=== PATIENT | male | born 2000 | race Caucasian/White ===

== ENCOUNTER 2020-04-01 10:45 | Outpatient (CLI) | payer MEDICAID, SELFPAY ==
[2020-04-01 11:59] LABS: Abs Immature Grans 0.01 10^3/uL (0.0-0.06); Absolute Basophil Count 0.02 10^3/uL (0.0-0.2); Absolute Eosinophil Count 0.01 10^3/uL (0.0-0.7); Absolute Lymphocyte Count 1.86 10^3/uL (1.2-3.4); Absolute Monocyte Count 0.56 10^3/uL (0.1-0.8); Absolute Neutrophil Count 5.06 10^3/uL (1.2-6.7); Basophils % 0.3; Eosinophils % 0.1; HCT 53.3 % (40.0-50.0); HGB 18.3 g/dL (13.5-17.5); Immature Grans % 0.1; Lymphocytes % 24.7; MCH 30.9 pg (27.0-33.0); MCHC 34.3 % (32.0-36.0); MCV 89.9 fL (80-95); MPV 9.5 fL (8.0-11.0); Monocytes % 7.4; Neutrophils % 67.4; Nucleated RBC 0 %; Platelet Count 283 10^3/uL (130-400); RBC 5.93 10^6/uL (4.36-5.78); RDW 12.2 % (11.8-14.1); RDW-SD 40.6 fL; WBC 7.52 10^3/uL (4.4-10.8)
[2020-04-01 12:22] LABS: ALT 18 U/L (16-63); AST 11 U/L (15-37); Albumin 5.2 g/dL (3.4-5.0); Alkaline Phosphatase 69 U/L (46-116); Anion Gap 9.9 mmol/L (3-11); BUN 14 mg/dL (7-18); Bilirubin, Total 0.5 mg/dL (0.2-1.0); CO2 27.1 mmol/L (21.0-32.0); CREATININE 1.16 mg/dL (0.70-1.30); Calcium 9.9 mg/dL (8.5-10.1); Chloride 103 mmol/L (98-107); Glucose 106 mg/dL (74-106); Potassium 3.9 mmol/L (3.5-5.1); Sodium 140 mmol/L (136-145); Total Protein 8.8 g/dL (6.4-8.2)
[2020-04-01 19:22] LABS: Bilirubin Negative (Negative); Blood Negative (Negative); Clarity Clear (Clear); Glucose Negative (Negative); Ketones 15 mg/dL (Negative); Leukocyte Esterase Negative (Negative); Nitrite Negative (Negative); Specific Gravity >= 1.030 (1.005-1.025); Urobilinogen 0.2 EU/dL (Up TO 0.2)
[2020-04-05 15:17] LABS: IgA 327 mg/dL (85-499); Interpretation (See Note); Tissue Transglutaminase IgA <1.2 U/mL (<4.0)
== END 2020-04-01 11:05 ==
PROVIDERS: PCP Pediatrics; Visit Provider Naturopath
DX: R19.7 Diarrhea, unspecified (principal); R10.30 Lower abdominal pain, unspecified
CPT/HCPCS: 36415; 80053; 82784; 83516; 81003; 85025

== ENCOUNTER 2020-04-02 13:51 | Outpatient (REF) | payer MEDICAID, SELFPAY ==
[2020-04-03 11:31] LABS: Campylobacter PCR Negative (Negative); Salmonella PCR Negative (Negative); Shiga Toxin PCR Negative (Negative); Shigella/Enteroinvasive Ecoli Negative (Negative)
== END 2020-04-02 14:11 ==
LOC: LBN 13:51
PROVIDERS: PCP Pediatrics; Visit Provider Naturopath
DX: R19.7 Diarrhea, unspecified (principal); R10.30 Lower abdominal pain, unspecified
CPT/HCPCS: 87505; 83630; 87324

== ENCOUNTER 2021-07-22 15:24 | Outpatient (REF) | payer MEDICAID, SELFPAY ==
[2021-07-23 18:26] LABS: COVID-19 RT-PCR UVMMC Result Indeterminate (Negative)
== END 2021-07-22 15:25 | disposition home or self-care (01) ==
LOC: LBN 15:24
PROVIDERS: Visit Provider Family Medicine
DX: Z20.822 Contact with and (suspected) exposure to COVID-19 (principal); J06.9 Acute upper respiratory infection, unspecified
CPT/HCPCS: U0003

== ENCOUNTER 2022-08-08 18:22 | Emergency (ER) | payer MEDICAID, SELFPAY ==
[2022-08-08 18:25] VITALS: BP 105/72; PULSE 83; RESP 16; TEMP 37.4; O2SAT 100
--- NOTE | 2022-08-08 18:47 | ED.GENADUL_ITS ---
Discharge Plan Disposition Patient Disposition: Home Condition: Improving Discharge Details Clinical Impression: Abscess of face Primary Care Provider: Carlita,Local ED Provider: Jeff Norman Home Meds and New Rx's Prescriptions: New cephalexin 500 mg capsule 500 mg PO QID 10 Days Qty: 40 0RF sulfamethoxazole-trimethoprim [Bactrim DS] 800-160 mg tablet 1 tab PO BID Qty: 20 0RF Discharge Instructions Instructions: Hypokalemia (ED), Abscess Incision and Drainage (DC) Additional Instructions: Keflex and Bactrim as directed. Warm moist compresses every 2 hours for 20 minutes. [id number] Tylenol and/or Motrin as directed for discomfort. Please watch for new or worsening symptoms and return to the ER for any concerns. I have placed you on the care management list of expedite outpatient primary care follow-up. This follow-up likely cannot happen in the next 2 days and therefore I would like you to return to the ER in 48 hours for a wound recheck, as above return sooner for worsening symptoms. We did discuss your low potassium, be sure to have foods high in potassium. This too needs to be rechecked to be sure it is normalizing. Discharge Data Discharge Date/Time-TO BE ENTERED AT DEPARTURE: 08/08/22 21:21 Medical Decision Making <TATI Espinoza - Last Filed: 08/08/22 21:03> 21-year-old gentleman, denies significant past medical history, smokes marijuana, presents for a right sided facial abscess worsening over 1 week. Had leftover amoxicillin from a previous infection and taking that over the past couple of days, a total of 7 doses. He was seen at the walk-in clinic and sent to the ER for further evaluation. He appears nontoxic. Speaks in full sentences, manages his airway without difficulty. No difficulty speaking or breathing. Given the size and location of the abscess, I did ask Dr. Hunt to evaluate the patient. He did personally evaluate the patient, please see his note, bedside ultrasound performed as well as I&D by him. Plan to obtain IV access, give IV Rocephin, routine screening laboratory values. White blood cell count of 17.95. Potassium 2.7. Will replenish both with IV and p.o. potassium and obtain an EKG. I&D performed by Dr. Hunt, please see his note. Patient tolerated well. Patient given 1 tablet of Bactrim DS and 1 tablet of Percocet. We will provide a prescription for both Bactrim and Keflex and a take-home pack of Percocet. I have placed him on the care management list to help expedite outpatient follow- up for both his facial abscess and hypokalemia. His range of motion in his jaw is much improved. Airway is patent. He manages his secretions without difficulty. We did discuss the importance of increasing his overall potassium intake with things such as electrolyte drinks, bananas, etc. I will have him return to the ER in 48 hours for recheck as he does not have a PCP Standard discharge and return precautions were provided. Patient understands, is agreeable to this plan, and has no additional questions or concerns upon discharge. This documentation was generated using [employer] system, please disregard any oddities of phrase or misspellings. Medical Records Medical records reviewed: Yes I reviewed the patient's medical records. Lab Data Lab results reviewed: Yes I reviewed the patient's lab results. Labs: Laboratory Tests Range/Units 08/08/22 08/08/22 18:55 18:55 WBC (4.4-10.8) 10^3/uL 17.95 H RBC (4.36-5.78) 10^6/uL 5.20 Hgb (13.5-17.5) g/dL 15.5 Hct (40.0-50.0) % 45.2 MCV (80-95) fL 87 MCH (27.0-33.0) pg 29.8 MCHC (32.0-36.0) % 34.3 RDW (11.8-14.1) % 13.2 Plt Count (130-400) 10^3/uL 475 H MPV (8.0-11.0) fL 9.2 Immature Gran % 0.6 Neutrophils % 81.0 Lymphocytes % 9.8 Monocytes % 7.5 Eosinophils % 0.8 Basophils % 0.3 Nucleated RBC % (0.0-0.3) % 0.0 Absolute Neutrophils (1.2-6.7) 10^3/uL 14.54 H Absolute Lymphocytes (1.2-3.4) 10^3/uL 1.76 Absolute Monocytes (0.1-0.8) 10^3/uL 1.35 H Absolute Eosinophils (0.0-0.7) 10^3/uL 0.14 Absolute Basophils (0.0-0.2) 10^3/uL 0.05 Sodium (136-145) mmol/L 138 Potassium (3.5-5.1) mmol/L 2.7 L* Chloride (98-107) mmol/L 99 Carbon Dioxide (21.0-32.0) mmol/L 30.2 Anion Gap (3-11) mmol/L 8.8 BUN (7-18) mg/dL 12 Creatinine (0.70-1.30) mg/dL 1.2 Est GFR (CKD-EPI 2020) (mL/min/1.73m2) 88.24 Glucose (74-106) mg/dL 105 Calcium (8.5-10.1) mg/dL 9.6 Total Bilirubin (0.2-1.0) mg/dL 0.4 AST (15-37) U/L 17 ALT (16-63) U/L 21 Alkaline Phosphatase (46-116) U/L 98 Total Protein (6.4-8.2) g/dL 8.8 H Albumin (3.4-5.0) g/dL 3.5 ECG Data Attestation: I personally reviewed and interpreted this ECG (s) as follows: Interpretation: Sinus rhythm, ventricular of 73. ST elevation, probable early repolarization pattern. No evidence of changes consistent with hypokalemia. <Butch Hunt MD - Last Filed: 08/12/22 18:40> Date: 08/08/22 Time: 18:53 Note: Patient seen, examined, and discussed with TATI Norman. I agree with treatment plan as discussed/documented. HPI <TATI Espinoza - Last Filed: 08/08/22 21:03> General Mode of arrival: ambulatory . Date/Time Provider Initiated Documentation: 08/08/22 18:31 . Limitations to Documentation: no limitations . Information obtained by: patient . History of Present Illness 21 year old M presents to the emergency department with the chief complaint of Facial abscess, described as severe, with intensity rated at 8. Quality is described as aching, and is localized to the face. Patient reports no radiation. Patient started experiencing this week(s) (1) and it has been other (Worsening). No relieving factors improve symptom(s), No exacerbating factors reported . Patient notes no other symptoms.. Patient did receive the following treatments prior to arrival, other (Has been taking amoxicillin not prescribed to him) Related Data Home Medications Medication Instructions Recorded Confirmed cephalexin 500 mg capsule 500 mg PO QID 10 days #40 caps 08/08/22 sulfamethoxazole 800 1 tab PO BID #20 tabs 08/08/22 mg-trimethoprim 160 mg tablet (Bactrim DS) Previous Rx's Medication Instructions Recorded cephalexin 500 mg capsule 500 mg PO QID 10 days #40 caps 08/08/22 sulfamethoxazole 800 1 tab PO BID #20 tabs 08/08/22 mg-trimethoprim 160 mg tablet (Bactrim DS) Allergies Allergy/AdvReac Type Severity Reaction Status Date / Time No Known Allergies Allergy Unverified 08/08/22 18:28 General Stated Complaint: Cellulitis SHAVONNE: 3 Review of Systems <TATI Espinoza - Last Filed: 08/08/22 21:03> Constitutional Constitutional: Denies fever(s) and Denies weakness ENT Ears, Nose, Mouth, and Throat: Reports facial pain, Denies mouth pain, Denies neck pain and Denies sore throat Cardiovascular Cardiovascular: Denies chest pain and Denies dyspnea Respiratory Respiratory: Denies dyspnea Musculoskeletal Musculoskeletal: Denies neck pain, Denies numbness and Denies tingling Integumentary/Breasts Skin/Breast: Reports erythema Neurologic Neurologic: Denies numbness, Denies tingling and Denies weakness [facility] <TATI Espinoza - Last Filed: 08/08/22 21:03> All Active Problems (Updated 08/08/22 @ 20:59 by TATI Espinoza) Abscess of face (Acute) Medical History Hernia REPAIRED Surgical History Repair of inguinal hernia Family History Mother Healthy adult on routine physical examination Mental disorder Anxiety and depression Asthma Father Healthy adult on routine physical examination Other Neoplasm Grandmother - skin cancer Social History Smoking/Tobacco Use Status: Never Smoking risk assessment performed?: Yes Drug use: Daily Substance use type: marijuana Do you feel safe at home: Yes Do you feel safe in your relationship?: Yes Exam <TATI Espinoza - Last Filed: 08/08/22 21:03> Const General: cooperative, healthy appearing, comfortable and no acute distress Orientation: alert and awake [facility] Head: normal to inspection, normocephalic and atraumatic Ears: external ears normal, TM's normal bilaterally and EAC's normal General nose exam: external nose normal Face images: 1. Moderate sized abscess, pointing, tender, erythematous, warm. There is no lymphangitic streaking. No draining. Mild trismus Mouth: oral mucosae normal, moist mucous membranes, no muffled voice, trismus (mild) and other (No discomfort or fullness to the floor of the mouth) Throat: posterior oropharynx normal Eyes General: appearance normal, both eyes and all related structures Conjunctivae: conjunctivae normal Neck Neck: normal visual inspection, full ROM, no meningeal signs, trachea midline, supple, lymphadenopathy right anterior cervical and tender Resp Effort & Inspection: normal respiratory effort and able to speak in complete sentences Auscultation: clear to auscultation bilaterally Cardio Rate: regular rate Rhythm: regular rhythm Skin General skin exam: erythema (As above) Neuro General: patient alert, patient awake, moves all extremities and no focal motor deficits Cognition: normal cognition Speech: speech normal Gait: normal gait Sensory Exam: no sensory deficits noted Psych Appearance: grossly normal Mental Status: mental status grossly normal Course <TATI Espinoza - Last Filed: 08/08/22 21:03> Vital Signs Vital signs: Vital Signs Temperature 37.4 C 08/08/22 18:25 Pulse 83 08/08/22 18:25 Respiratory Rate 16 08/08/22 18:25 Blood Pressure 105/72 08/08/22 18:25 Pulse Oximetry 100 08/08/22 18:25 Temperature 37.4 C 08/08/22 18:25 Temperature Source Skin 08/08/22 18:25 Pulse 83 08/08/22 18:25 Respiratory Rate 16 08/08/22 18:25 Blood Pressure 105/72 08/08/22 18:25 Blood Pressure Position Sitting 08/08/22 18:25 Pulse Oximetry 100 08/08/22 18:25 Oxygen Delivery Method Room Air 08/08/22 18:25 Oxygen Flow Rate 0 08/08/22 18:25 Pain Level 7 08/08/22 18:25 <Butch Hunt MD - Last Filed: 08/12/22 18:40> Abscess I/D Site: Face Side (if applicable): Right Local Anesthetic: Lidocaine 2% and With Epi Amount of anesthesia used (mL): 4 Technique: Incised with #11 Blade Amount of fluid expressed (mL): 50 Irrigation: Yes Packing used?: None Complications: Pain
[2022-08-08 19:01] LABS: Absolute Basophil Count 0.05 10^3/uL (0.0-0.2); Absolute Eosinophil Count 0.14 10^3/uL (0.0-0.7); Absolute Lymphocyte Count 1.76 10^3/uL (1.2-3.4); Absolute Monocyte Count 1.35 10^3/uL (0.1-0.8); Basophils % 0.3; Eosinophils % 0.8; HCT 45.2 % (40.0-50.0); HGB 15.5 g/dL (13.5-17.5); Immature Grans % 0.6; Lymphocytes % 9.8; MCH 29.8 pg (27.0-33.0); MCHC 34.3 % (32.0-36.0); MCV 87 fL (80-95); MPV 9.2 fL (8.0-11.0); Monocytes % 7.5; Platelet Count 475 10^3/uL (130-400); RDW 13.2 % (11.8-14.1); RDW-SD 42.2 fL; WBC 17.95 10^3/uL (4.4-10.8)
[2022-08-08 19:02] LABS: Absolute Neutrophil Count 14.54 10^3/uL (1.2-6.7)
[2022-08-08 19:15] LABS: ALT 21 U/L (16-63); AST 17 U/L (15-37); Albumin 3.5 g/dL (3.4-5.0); Alkaline Phosphatase 98 U/L (46-116); Anion Gap 8.8 mmol/L (3-11); BUN 12 mg/dL (7-18); Bilirubin, Total 0.4 mg/dL (0.2-1.0); CO2 30.2 mmol/L (21.0-32.0); CREATININE 1.2 mg/dL (0.70-1.30); Calcium 9.6 mg/dL (8.5-10.1); Chloride 99 mmol/L (98-107); Estimated GFR 88.24 (mL/min/1.73m2); Glucose 105 mg/dL (74-106); Sodium 138 mmol/L (136-145); Total Protein 8.8 g/dL (6.4-8.2)
[2022-08-08] MEDS: Lidocaine/Epinephri/Tetracaine Topical Gel 3 ML TP (19:15)
--- NOTE | 2022-08-08 19:15 | RT.EKG_ITS ---
APPROVED REPORT Exam: Resting ECG Reason for Exam: abnormal lab Patient Location: E HR:73 bpm ECG Measurements Heart Rate 73 AXIS MA 134 P 64 QRSd 108 QRS 23 QT 378 T 64 QTc 417 Conclusion Sinus rhythm...normal P axis, V-rate 60- 99 ST elev, probable normal early repol pattern...ST elevation, age<55
[2022-08-08] MEDS: cefTRIAXone 2 GM/50 ML BAG IVPB (19:16)
[2022-08-08 19:17] LABS: Potassium 2.7 mmol/L (3.5-5.1)
[2022-08-08] MEDS: Potassium Chloride 20 MEQ TABCR 40 MEQ PO (19:59)
[2022-08-08] MEDS: POTASSIUM CHLORIDE 10 MEQ/100 ML BAG 100 MEQ IVPB (19:59)
[2022-08-08] MEDS: oxyCODONE 5 mg/Acetaminophen 325 mg TAB 1 TAB PO (20:48)
[2022-08-08] MEDS: Sulfameth/Trimeth DS TAB 1 TAB PO (20:48)
[2022-08-08 21:13] VITALS: BP 123/74; PULSE 73; RESP 18; TEMP 36.4; O2SAT 100
--- NOTE | 2022-08-09 13:40 | CMACTNOTE_ITS ---
- If Service Date Differs Date of service: 08/09/22 Time of Service: 13:40 Care Management Activity Note Massimo was seen in the ED for a facial abscess and hypokalemia. At the request of ED provider, CHRISTOS coordinates a referral to BUCKY Winslow, of [facility], t-doc, to assist Massimo in obtaining a follow up appointment and in establishing care with a local PCP. He has Medicaid for insurance.
== END 2022-08-08 21:21 | disposition home or self-care (01) ==
PROVIDERS: Emergency Provider Physician Assistant
DX: L02.01 Cutaneous abscess of face (principal)
CPT/HCPCS: 10060; 80053; 87077; 93005; 96365; 96367; 99284; 85025; 87070; 87205; 93010; J3480

== ENCOUNTER 2022-12-03 12:28 | Emergency (ER) | payer MEDICAID, SELFPAY ==
[2022-12-03 12:35] VITALS: BP 147/90; PULSE 105; RESP 18; TEMP 37.4; O2SAT 100
--- NOTE | 2022-12-03 13:00 | ED.GENADUL_ITS ---
Discharge Plan Disposition Patient Disposition: Home Condition: Stable Discharge Details Clinical Impression: Abscess of face Primary Care Provider: Carlita,Local ED Provider: Alexi Leal Home Meds and New Rx's Prescriptions: New sulfamethoxazole-trimethoprim [Bactrim DS] 800-160 mg tablet 1 tab PO BID Qty: 14 0RF cephalexin 500 mg tablet 500 mg PO QID Qty: 28 0RF Discontinued sulfamethoxazole-trimethoprim [Bactrim DS] 800-160 mg tablet 1 tab PO BID Qty: 20 0RF Patient Comments: not taking Discharge Instructions Instructions: Abscess (ED) Additional Instructions: You should be contacted with an appointment for general surgery for a recheck of the abscess take the antibiotics as prescribed, use warm compresses every 2 hours while awake for 20 minutes if you feel more ill, have severe pain or fevers return to the emergency department Medical Decision Making 22 yo male who had an abscess of his face late last year drained in the ED comes in with feeling as though he has another abscess for 4 days. HE noticed swelling to the rigth lower face and jaw 4 days ago and has progressively worsened. Denies fevers or severe pain. Denies difficulty swallowing or breathing. HE has a large 4cm erythematous fluctuance on his right lower face/jaw. Has full rom of his jaw, no crepitus, normal posterior pharynx, no visible dental abscess, no submandibular swelling or pain over the hyoid. His exam is consistent with a superficial facial abscess. He has capacity to make his own decisions and consents to having bedside i and D which I will proceed with, no findings on exam or history to suggest deeper abscess requiring CT and no symptoms to suggest sepsis at this time so will defer blood work I incised with an 11 blade scalpel making a 0.5cm incision and had copious foul smelling pus return. I probed with lyudmila clamps and irrigated, no complications and he tolerated well. Will start him on cephalexin and bactrim, and have him f/u with general surgery this week for a recheck, return precautions given Differential Diagnosis Differential Diagnosis: abscess, cellulitis HPI General Mode of arrival: ambulatory . Date/Time Provider Initiated Documentation: 12/03/22 12:29 . Limitations to Documentation: no limitations . Information obtained by: patient . History of Present Illness 22 year old M presents to the emergency department with the chief complaint of abscess on right lower jaw line, described as moderate, and it has been constant. No relieving factors improve symptom(s), No exacerbating factors reported . Patient notes no other symptoms.; denies fever/chills. Patient did receive the following treatments prior to arrival, none Related Data Home Medications Medication Instructions Recorded Confirmed cephalexin 500 mg tablet 500 mg PO QID #28 tabs 12/03/22 sulfamethoxazole 800 1 tab PO BID #14 tabs 12/03/22 mg-trimethoprim 160 mg tablet (Bactrim DS) Previous Rx's Medication Instructions Recorded cephalexin 500 mg tablet 500 mg PO QID #28 tabs 12/03/22 sulfamethoxazole 800 1 tab PO BID #14 tabs 12/03/22 mg-trimethoprim 160 mg tablet (Bactrim DS) Allergies Allergy/AdvReac Type Severity Reaction Status Date / Time No Known Allergies Allergy Unverified 12/03/22 12:38 General Stated Complaint: DentalOral SHAVONNE: 3 Review of Systems All systems reviewed & are unremarkable except as noted in HPI and below Constitutional Constitutional: Denies chills, Denies fever(s) and Denies weakness ENT Ears, Nose, Mouth, and Throat: Denies change in voice Cardiovascular Cardiovascular: Denies chest pain and Denies dyspnea Respiratory Respiratory: Denies cough and Denies dyspnea Gastrointestinal Gastrointestinal: Denies abdominal pain, Denies nausea and Denies vomiting Neurologic Neurologic: Denies weakness PFSH All Active Problems (Updated 12/03/22 @ 13:25 by Alexi Leal MD) Abscess of face (Acute) Medical History Hernia REPAIRED Surgical History Repair of inguinal hernia Family History Mother Healthy adult on routine physical examination Mental disorder Anxiety and depression Asthma Father Healthy adult on routine physical examination Other Neoplasm Grandmother - skin cancer Social History Smoking/Tobacco Use Status: Former Tobacco Use Smoking risk assessment performed?: Yes Alcohol Intake: current Alcohol Intake frequency: holidays/special occasions only Drug use: Current Sobriety Substance use type: does not use Do you feel safe at home: Yes Do you feel safe in your relationship?: Yes Exam Const General: no acute distress Orientation: alert HENMT Head: normal to inspection Ears: external ears normal General nose exam: external nose normal Mouth: moist mucous membranes Eyes General: appearance normal, both eyes and all related structures Neck Neck: normal visual inspection Resp Effort & Inspection: normal respiratory effort and able to speak in complete sentences Cardio Rate: regular rate Skin General skin exam: erythema Neuro General: patient alert and patient oriented x3 Extrem General: normal to inspection Psych Mental Status: mental status grossly normal Course Vital Signs Vital signs: Vital Signs Temperature 37.4 C 12/03/22 12:35 Pulse 105 H 12/03/22 12:35 Respiratory Rate 18 12/03/22 12:35 Blood Pressure 147/90 H 12/03/22 12:35 Pulse Oximetry 100 12/03/22 12:35 Temperature 37.4 C 12/03/22 12:35 Temperature Source Oral 12/03/22 12:35 Pulse 105 H 12/03/22 12:35 Respiratory Rate 18 12/03/22 12:35 Respiratory Effort Normal, Non-Labored 12/03/22 12:36 Blood Pressure 147/90 H 12/03/22 12:35 Pulse Oximetry 100 12/03/22 12:35 Oxygen Delivery Method Room Air 12/03/22 12:35 Oxygen Flow Rate 0 12/03/22 12:35 Procedures Abscess I/D Site: Face Side (if applicable): Right Sedation/analgesia: None Local Anesthetic: Lidocaine 1% and With Epi Amount of anesthesia used (mL): 5 Technique: Incised with #11 Blade Amount of fluid expressed (mL): 50 Irrigation: Yes Packing used?: None PAWSS Have you Been Recently Intoxicated or Drunk Within the Last 30 days?: No Have you Ever Experienced Previous Episodes of Alcohol Withdrawal?: No Have you ever Experienced Withdrawal Seizures?: No Have you ever Experienced Delirium Tremens(DT)s?: No Have you ever undergone Alcohol Rehabilitation Treatment (i.e, inpt ot outpatient treatment programs)?: No Have you ever Experienced Blackouts?: No Have you ever Combined Alcohol with other Downers within the last 90 days?: No Have you ever Combined Alcohol with any other Substance of Abuse during the last 90 days?: No Positive Blood Alcohol level on Presentation? [PCS.BAL]: No Evidence of Increased Autonomic Activity (i.e. HR>120, tremor, sweating, agitation, nausea)?: No Result: 0
[2022-12-03] MEDS: Dexamethasone 4 MG TAB 10 MG PO (13:03)
--- NOTE | 2022-12-03 13:14 | NUR.NOTE ---
Referral to General Surgery for abscess of face this week. Put the referral in care management's box for f/u assistance.Nursing Note:
[2022-12-03 13:42] VITALS: PULSE 78; RESP 18; O2SAT 98
== END 2022-12-03 13:38 | disposition home or self-care (01) ==
PROVIDERS: Emergency Provider Emergency Medicine
DX: L02.01 Cutaneous abscess of face (principal)
CPT/HCPCS: 10060; 99283; 99284; J8540

== ENCOUNTER 2024-09-20 16:31 | Emergency (ER) | payer MEDICAID, SELFPAY ==
[2024-09-20 16:35] VITALS: BP 106/69; PULSE 87; RESP 18; TEMP 36.3; O2SAT 99
[2024-09-20 16:38] VITALS: BP 106/69; PULSE 87; RESP 18; TEMP 36.3; O2SAT 99
--- NOTE | 2024-09-20 16:45 | W.ED.GENAD ---
Discharge Plan Disposition Patient Disposition: Home Condition: Stable Discharge Details Clinical Impression: Abscess, dental Primary Care Provider: Carlita,Local ED Provider: Jojo Hernandez Home Meds and New Rx's Prescriptions: New penicillin V potassium 500 mg tablet 500 mg PO QID 7 Days Qty: 28 0RF ondansetron 4 mg tablet,disintegrating 4 mg PO Q8H PRNQty: 7 0RF Discharge Instructions Instructions: Dental Pain ED, Tooth Abscess ED Additional Instructions: Follow-up with dentist as soon as possible. Recommend applying dental wax over area when eating. Discharge Data Discharge Physician: Jojo Hernandez [facility] General Date/Time Provider Initiated Documentation: 09/20/24 16:37. HPI Narrative: 23-year-old male presents for evaluation of dental pain and jaw swelling. Patient has had pain in his right lower tooth for the last week. He has had some swelling to the jaw. Denies any fevers or chills. No difficulty swallowing. He did have an episode of vomiting en route to the emergency department. Denies any abdominal pain. No recent antibiotics. He has known broken tooth in the area. He has been trying to get follow-up with a dentist. Related Data Home Medications ?Medication ?Instructions ?Recorded ?Confirmed ondansetron 4 mg disintegrating 4 mg PO Q8H PRN #7 tabs 09/20/24 tablet penicillin V potassium 500 mg 500 mg PO QID 7 days #28 tabs 09/20/24 tablet Previous Rx's ?Medication ?Instructions ?Recorded ondansetron 4 mg disintegrating 4 mg PO Q8H PRN #7 tabs 09/20/24 tablet penicillin V potassium 500 mg 500 mg PO QID 7 days #28 tabs 09/20/24 tablet Allergies Allergy/AdvReac Type Severity Reaction Status Date / Time No Known Allergies Allergy Unverified 09/20/24 16:37 General Stated Complaint: DentalOral SHAVONNE: 4 Review of Systems Narrative: Remainder of review of systems otherwise negative except for as noted in the HPI x 5. Exam Narrative Exam Narrative: General: non-toxic, no respiratory distress, comfortable HEENT: normocephalic, atraumatic, lids and lashes normal, PERRL, EOMI, anicteric sclera, no conjunctival injection, moist mucous membranes, no erythema, tenderness to palpation over right lower posterior molar which is broken at base, no palpable area of fluctuance, no visible abscess, no hoarseness, stridor or drooling, no trismus. Patient is maintaining own secretions just fine. Uvula is midline, no peritonsilar abscess. Neck: Enlarged right anterior cervical lymph node Musculoskeletal: full range of motion of arms and legs, no tenderness to palpation. no clubbing, cyanosis, or edema Neurologic: appropriate for age, strength normal Psych: alert and oriented Skin: no petechiae, no lesions, warm and dry Course Patient most likely has an uncomplicated dental abscess. No evidence of deep space infection. No area amendable to I&D at this time. Will discharge home on antibiotics. Follow up with dentist KIKA. Return to ED for worsening facial swelling, high fevers, difficulty swallowing, difficulty breathing. Vital Signs Vital signs: Vital Signs Temperature 36.3 C L 09/20/24 16:35 Pulse 87 09/20/24 16:35 Respiratory Rate 18 09/20/24 16:35 Blood Pressure 106/69 09/20/24 16:35 Pulse Oximetry 99 09/20/24 16:35 Temperature 36.3 C L 09/20/24 16:38 Pulse 87 09/20/24 16:38 Respiratory Rate 18 09/20/24 16:38 Blood Pressure 106/69 09/20/24 16:38 Pulse Oximetry 99 09/20/24 16:38 Medical Decision Making Quality:SDOH Health Related Social Needs: No Data to Display PFSH All Active Problems (Updated 09/20/24 @ 16:48 by Jojo Hernandez MD) Abscess, dental (Acute) Medical History Hernia REPAIRED Surgical History Repair of inguinal hernia Family History Mother Healthy adult on routine physical examination Mental disorder Anxiety and depression Asthma Father Healthy adult on routine physical examination Other Neoplasm Grandmother - skin cancer Social History Smoking/Tobacco Use Status: Current every day Tobacco Type: cigarettes and e-cigarettes Smoking risk assessment performed?: Yes Alcohol Intake: current Alcohol Intake frequency: holidays/special occasions only Drug use: Daily Substance use type: marijuana Do you feel safe at home: Yes Do you feel safe in your relationship?: Yes
[2024-09-20] MEDS: Penicillin V POTASSIUM 500 MG TAB PO (16:53)
[2024-09-20] MEDS: Ondansetron O.D.T. 4 MG TABEF PO (16:54)
== END 2024-09-20 17:01 | disposition home or self-care (01) ==
LOC: ER 17:46
PROVIDERS: Emergency Provider Emergency Medicine Emergency Medical Services
DX: K08.89 Other specified disorders of teeth and supporting structures (principal); K04.7 Periapical abscess without sinus; F17.210 Nicotine dependence, cigarettes, uncomplicated; F17.290 Nicotine dependence, other tobacco product, uncomplicated
CPT/HCPCS: 99283